=== PATIENT | male | born 1945 | race Caucasian/White ===

== ENCOUNTER 2021-12-24 10:47 | Outpatient (CLI) | payer MEDICARE, SELFPAY ==
[2021-12-24 11:18] LABS: Basophils Absolute Auto 0.1 K/mm3 (0.0-0.1); Basophils Percent Auto 0.8 % (0.2-1.2); Eosinophils Absolute Auto 0.3 K/mm3 (0-0.3); Eosinophils Percent Auto 4.4 % (0-4.4); Hematocrit 37.4 % (42.0-52.0); Immature Granulocyte Absolute 0.01 K/mm3 (0.00-0.031); Immature Granulocyte Percent A 0.2 % (0-0.5); Lymphocytes Absolute Auto 1.17 K/mm3 (0.9-3.2); Lymphocytes Percent Auto 18.9 % (18.3-44.2); Mean Corpuscular HGB Conc 32.1 g/dl (32-36); Mean Corpuscular Hemoglobin 34.5 pg (26-34); Mean Corpuscular Volume 107.5 fl (80-100); Mean Platelet Volume 9.8 fl (7.4-10.4); Monocytes Absolute Auto 0.7 K/mm3 (0.1-0.6); Neutrophils Percent Auto 64.7 % (45.5-73.1); Platelet Count Result 197 k/mm3 (150-375); Red Blood Count 3.48 M/mm3 (4.6-6.20); Red Cell Distribution Width 13.2 % (11.5-14.5); White Blood Count 6.2 K/mm3 (4.5-10.0)
[2021-12-24 11:28] LABS: Alanine Aminotransferase 15 U/L (4-50); Albumin Level 3.8 g/dL (3.5-5.1); Alkaline Phosphatase 54 U/L (38-126); Anion Gap 3 mmol/L (8-16); Aspartate Amino Transferase 23 U/L (17-59); Bilirubin,Total 0.7 mg/dL (0.2-1.3); Blood Urea Nitrogen 25 mg/dL (9-20); Calcium 8.4 mg/dL (8.4-10.2); Carbon Dioxide 34 mmol/L (22-30); Chloride 105 mmol/L (98-107); Estimated Glomerular Filt Rate > 60; Glucose 102 mg/dL (65-110); Magnesium 1.8 mg/dL (1.6-2.3); Potassium 4.4 mmol/L (3.4-5.0); Sodium 142 mmol/L (137-145)
== END 2021-12-24 10:48 | disposition home or self-care (01) ==
PROVIDERS: PCP Family Medicine; Visit Provider Nurse Practitioner Adult Health
DX: I25.5 Ischemic cardiomyopathy (principal); Z95.810 Presence of automatic (implantable) cardiac defibrillator
CPT/HCPCS: 36415; 80053; 83735; 85025

== ENCOUNTER 2022-04-26 10:54 | Emergency (ER) | payer MEDICARE, SELFPAY ==
[2022-04-26 11:05] VITALS: BP 118/55; PULSE 61; RESP 20; TEMP 36.8; O2SAT 94
--- NOTE | 2022-04-26 11:30 | ED.RECABL ---
HPI - Recheck/Abnormal Lab/Rx General Chief Complaint: Recheck/Abnormal Lab/Rx Stated Complaint: blood pressure issues Time Seen by Provider: 04/26/22 11:23 History of Present Illness HPI narrative: Patient is a 77-year-old male with a history of ischemic cardiomyopathy status post ICD placement, here for evaluation of a low blood pressure today. Patient states that he was placed on amiodarone by his highway landscape architect last week. He has been taking this medication as prescribed, but states when he feels somewhat lightheaded over the past several days. He followed up in office for this, was told to half his dose, but he still feels lightheaded. States that this morning when he checked his blood pressure it was 99/77, which prompted him to come to the ED. He now feels normal and is asymptomatic, without any chest pain, shortness of breath, lightheadedness, syncope. Related Data Allergies Allergy/AdvReac Type Severity Reaction Status Date / Time Penicillins Allergy Intermediate Rash Verified 07/01/14 16:22 Review of Systems Review of Systems: Gen: Denies fevers or chills Eyes: Denies eye pain or visual change ENT: Denies congestion Respiratory: Denies shortness of breath or cough CV: Denies chest pain or palpitations GI: Denies abdominal pain nausea, emesis or diarrhea denies burning, urgency, frequency or hematuria Musculoskeletal: Denies back pain or muscle pain Neuro: Denies numbness, tingling, weakness or focal weakness Skin: Denies rash Except as documented, all other systems reviewed and negative Exam Narrative: APPEARANCE: Well appearing, no pain in distress, well-nourished. Head: Normocephalic and atraumatic. EYES: PERRLA/EOMI, conjunctivae clear NOSE: No nasal drainage EARS: External ear normal in appearance THROAT: Oropharynx is clear. Mucous membranes are moist. NECK: Supple. No adenopathy, no masses. RESPIRATORY: Airway patent, respirations nonlabored. Clear to auscultation bilaterally, no rales, rhonchi, wheezing. CARDIOVASCULAR: Regular rate and rhythm without murmurs, rubs, or gallops. ABDOMINAL: Normoactive bowel sounds. Soft, nontender, nondistended. No rebound tenderness or guarding. MUSCULOSKELETAL: Extremities are warm and well-perfused. Moves all extremities well. No edema. NEURO: Normal speech. No focal neurologic deficits. SKIN: Skin is warm and dry. No rashes. PSYCHIATRIC: Normal affect/mood.. Course Consultations Consultation #1: Spoke with Lucy Oates, cardiology nurse practitioner, who agrees that patient's home blood pressures and blood pressure in the emergency department are acceptable, agree with plan to continue patient's current medication regimen Date: 04/26/22 Time: 11:38 Vital Signs Vital signs: Vital Signs Temperature 98.2 F 04/26/22 11:05 Pulse Rate 61 04/26/22 11:05 Respiratory Rate 20 04/26/22 11:05 Blood Pressure 118/55 L 04/26/22 11:05 Pulse Oximetry 94 04/26/22 11:05 Oxygen Delivery Room Air 04/26/22 11:05 Temperature 98.2 F 04/26/22 11:05 Pulse Rate 64 04/26/22 12:00 Respiratory Rate 14 04/26/22 12:00 Blood Pressure 111/58 L 04/26/22 12:00 Pulse Oximetry 93 04/26/22 12:00 Oxygen Delivery Room Air 04/26/22 11:05 MDM - Recheck/Abnormal Lab/Rx MDM Narrative Medical decision making narrative: 77-year-old male here for evaluation of a lower blood pressure reading at home today that was 99/77 after adjusting his blood pressure regiment with his highway landscape architect last week. Here, patient's blood pressure is 118/55 and he is asymptomatic. Spoke with Lucy Oates, cardiology RETAIL COORDINATOR, agrees with plan to continue patient's current antihypertensive regimen given that he is not significancy hypotensive in the ED. He was given reasons to return to the ED and he voiced understanding. We will follow-up with cardiology next week. Discharge Plan Discharge Clinical Impression: Ischemic cardiomyopathy Patient Disposition: Home, Self-Care Condition:
[2022-04-26 12:00] VITALS: BP 111/58; PULSE 64; RESP 14; O2SAT 93
== END 2022-04-26 12:05 | disposition home or self-care (01) ==
PROVIDERS: Emergency Provider Emergency Medicine
DX: I25.5 Ischemic cardiomyopathy (principal); Z95.810 Presence of automatic (implantable) cardiac defibrillator
CPT/HCPCS: 99281